=== PATIENT | male | born 1990 | race Caucasian/White ===

== ENCOUNTER 2025-04-02 07:23 | Emergency (ER) | payer OTHER ==
[~2025-04-02] VITALS: Ht 177.8 cm; Wt 68.0 kg
[2025-04-02] MEDS ORDERED: LIDOCAINE 1% INJ 50 ML MDV IJ ONE (08:29)
[2025-04-02] MEDS ORDERED: CEFTRIAXONE 1 G VIAL ONE (08:29)
[2025-04-02] MEDS: CEFTRIAXONE 1 G VIAL IM ONE (08:39)
[2025-04-02 09:14] VITALS: BP 125/76; TEMP 97.9; O2SAT 99
[2025-04-02 09:14] LABS: APPEARANCE,URINE CLEAR (CLEAR); BLOOD, URINE NEGATIVE Ery/uL (NEGATIVE); LEUKOCYTE ESTERASE ,URINE NEGATIVE (NEGATIVE); NITRITE, URINE NEGATIVE (NEGATIVE); UGLUCOSE NEGATIVE (NEGATIVE)
== END 2025-04-02 09:15 | disposition home or self-care (01) ==
LOC: ER 07:34
DX: N50.811 Right testicular pain (principal); Z60.2 Problems related to living alone
CPT/HCPCS: 99285; 96372; 76870; 81003; J3490; J0696